=== PATIENT | male | born 1945 | race Caucasian/White ===

== ENCOUNTER 2016-06-26 08:00 | Outpatient (CLI) | payer MEDICARE | END 2016-06-26 08:01 | disposition home or self-care (01) | DX: I48.91 Unspecified atrial fibrillation (principal); Z79.01 Long term (current) use of anticoagulants ==

== ENCOUNTER 2016-07-10 08:00 | Outpatient (CLI) | payer MEDICARE | END 2016-07-10 08:01 | disposition home or self-care (01) | DX: I48.91 Unspecified atrial fibrillation (principal); Z79.01 Long term (current) use of anticoagulants ==

== ENCOUNTER 2016-09-18 08:00 | Outpatient (CLI) | payer MEDICARE | END 2016-09-18 08:01 | disposition home or self-care (01) | DX: I48.91 Unspecified atrial fibrillation (principal); Z79.01 Long term (current) use of anticoagulants ==

== ENCOUNTER 2016-10-12 09:35 | Day surgery (SDC) | payer MEDICARE ==
[2016-10-12] MEDS ORDERED: LACTATED RINGERS 1,000 ML IV ONE (10:03)
[2016-10-12] MEDS ORDERED: fentaNYL 100 MCG/2 ML VIAL IVP ONE (11:25)
[2016-10-12] MEDS ORDERED: MIDAZOLAM 2 MG/2 ML VIAL IVP ONE (11:25)
== END 2016-10-12 09:36 | disposition home or self-care (01) ==
PROC: 0DBN8ZX Excision of Sigmoid Colon, Via Natural or Artificial Opening Endoscopic, Diagnostic (ICD-10-PCS; 2016-10-12)
PROC: 0DBP8ZX Excision of Rectum, Via Natural or Artificial Opening Endoscopic, Diagnostic (ICD-10-PCS; 2016-10-12)
PROC: 0DBK8ZX Excision of Ascending Colon, Via Natural or Artificial Opening Endoscopic, Diagnostic (ICD-10-PCS; principal; 2016-10-12 10:45)
DX: Z12.11 Encounter for screening for malignant neoplasm of colon (principal); K62.1 Rectal polyp; D12.2 Benign neoplasm of ascending colon; D12.5 Benign neoplasm of sigmoid colon; K57.30 Diverticulosis of large intestine without perforation or abscess without bleeding; K64.4 Residual hemorrhoidal skin tags; K64.8 Other hemorrhoids; E78.00 Pure hypercholesterolemia, unspecified; I10 Essential (primary) hypertension; I25.2 Old myocardial infarction; Z79.01 Long term (current) use of anticoagulants; Z82.49 Family history of ischemic heart disease and other diseases of the circulatory system; Z80.0 Family history of malignant neoplasm of digestive organs; Z83.3 Family history of diabetes mellitus; Z87.891 Personal history of nicotine dependence; Z88.2 Allergy status to sulfonamides
CPT/HCPCS: 45380; 45385; J7120

== ENCOUNTER 2016-10-24 08:00 | Outpatient (CLI) | payer MEDICARE | END 2016-10-24 08:01 | disposition home or self-care (01) | DX: I48.91 Unspecified atrial fibrillation (principal); Z79.01 Long term (current) use of anticoagulants ==

== ENCOUNTER 2016-10-31 14:05 | Outpatient (CLI) | payer MEDICARE | END 2016-10-31 14:06 | disposition home or self-care (01) | DX: I48.91 Unspecified atrial fibrillation (principal); Z79.01 Long term (current) use of anticoagulants ==

== ENCOUNTER 2016-12-06 11:01 | Outpatient (CLI) | payer MEDICARE | END 2016-12-06 11:02 | LOC: LAB.N 11:01 | PROVIDERS: ATTEND Internal Medicine | DX: I48.91 Unspecified atrial fibrillation (principal); Z79.01 Long term (current) use of anticoagulants | CPT/HCPCS: 85610 ==

== ENCOUNTER 2017-01-08 08:44 | Outpatient (CLI) | payer MEDICARE | END 2017-01-08 08:45 | disposition home or self-care (01) | LOC: LAB.N 08:44 | PROVIDERS: ATTEND Internal Medicine | DX: I48.91 Unspecified atrial fibrillation (principal); Z79.01 Long term (current) use of anticoagulants | CPT/HCPCS: 85610 ==

== ENCOUNTER 2017-02-08 13:40 | Outpatient (CLI) | payer MEDICARE | END 2017-02-08 13:41 | disposition home or self-care (01) | LOC: LAB.N 13:40 | PROVIDERS: ATTEND Internal Medicine | DX: I48.91 Unspecified atrial fibrillation (principal); Z79.01 Long term (current) use of anticoagulants | CPT/HCPCS: 85610 ==

== ENCOUNTER 2017-03-12 10:30 | Outpatient (CLI) | payer MEDICARE | END 2017-03-12 10:31 | disposition home or self-care (01) | LOC: LAB.N 10:30 | PROVIDERS: ATTEND Internal Medicine | DX: I48.91 Unspecified atrial fibrillation (principal); Z79.01 Long term (current) use of anticoagulants | CPT/HCPCS: 85610 ==

== ENCOUNTER 2017-04-10 15:27 | Outpatient (CLI) | payer MEDICARE | END 2017-04-10 15:28 | disposition home or self-care (01) | LOC: LAB.N 15:27 | PROVIDERS: ATTEND Internal Medicine | DX: I48.91 Unspecified atrial fibrillation (principal); Z79.01 Long term (current) use of anticoagulants | CPT/HCPCS: 85610 ==

== ENCOUNTER 2017-05-17 13:44 | Outpatient (CLI) | payer MEDICARE | END 2017-05-17 13:45 | disposition home or self-care (01) | LOC: LAB.N 13:44 | PROVIDERS: ATTEND Internal Medicine | DX: I48.91 Unspecified atrial fibrillation (principal); Z79.01 Long term (current) use of anticoagulants | CPT/HCPCS: 85610 ==

== ENCOUNTER 2017-06-05 08:00 | Outpatient (CLI) | payer MEDICARE ==
[2017-06-05 18:51] LABS: BASOPHILS % (AUTO) 0.5 %; EOSINOPHILS # (AUTO) 0.2 10^3/uL (0.0-0.7); HCT - HEMATOCRIT 48.4 % (42.0-52.0); LYMPHOCYTES # (AUTO) 1.4 10^3/uL (1.5-3.5); LYMPHOCYTES % (AUTO) 18.9 %; MEAN CORPUSCULAR HEMOGLOBIN 34.3 pg (27.0-31.0); MEAN CORPUSCULAR VOLUME 103.8 fL (80.0-94.0); MEAN PLATELET VOLUME 8.9 fL (7.4-11.4); MONOCYTES # (AUTO) 0.8 10^3/uL (0.0-1.0); MONOCYTES % (AUTO) 11.3 %; NEUTROPHILS % (AUTO) 66.3 %; RED BLOOD COUNT 4.66 10^6/uL (4.70-6.10); RED CELL DISTRIBUTION WIDTH 13.3 % (12.0-15.0); UNCORRECTED WHITE BLOOD COUNT 7.5 x10^3/uL; WHITE BLOOD COUNT 7.5 x10^3/uL (4.8-10.8)
[2017-06-05 19:04] LABS: ALBUMIN/GLOBULIN RATIO 1.6 (1.0-2.2); BILIRUBIN,TOTAL 1.6 mg/dL (0.2-1.0); BUN - BLOOD UREA NITROGEN 13 mg/dL (6-20); CALCIUM 9.3 mg/dL (8.5-10.3); CARBON DIOXIDE - CO2 25 mmol/L (21-32); CHLORIDE 96 mmol/L (101-111); CHOLESTEROL 172 mg/dL; CREATININE 1.1 mg/dL (0.6-1.2); GFR - MDRD 66 (>89); GLUCOSE 129 mg/dL (70-100); HDL CHOLESTEROL 58 mg/dL; LDL/HDL RATIO 1.7 (<3.6); POTASSIUM 4.2 mmol/L (3.5-5.0); SODIUM 132 mmol/L (135-145); TRIGLYCERIDES 82 mg/dL; VLDL CHOLESTEROL 16 mg/dL
[2017-06-05 19:13] LABS: HEMOGLOBIN A1C 0.63 g/dL
[2017-06-05 19:57] LABS: INR 2.3 (0.8-1.2); PT - PROTHROMBIN TIME 25.4 secs (9.9-12.6)
== END 2017-06-05 08:01 | disposition home or self-care (01) ==
LOC: LAB.N 08:00
PROVIDERS: ATTEND Internal Medicine
DX: I73.9 Peripheral vascular disease, unspecified (principal); E78.5 Hyperlipidemia, unspecified; K73.9 Chronic hepatitis, unspecified; I10 Essential (primary) hypertension; I48.91 Unspecified atrial fibrillation; Z12.5 Encounter for screening for malignant neoplasm of prostate
CPT/HCPCS: 36415; 80053; 80061; 83036; 85025; 85610; G0103; 84153

== ENCOUNTER 2017-07-09 09:46 | Outpatient (CLI) | payer MEDICARE | END 2017-07-09 09:47 | disposition home or self-care (01) | LOC: LAB.N 09:46 | PROVIDERS: ATTEND Internal Medicine | DX: I48.91 Unspecified atrial fibrillation (principal); Z79.01 Long term (current) use of anticoagulants | CPT/HCPCS: 85610 ==

== ENCOUNTER 2017-08-23 08:00 | Outpatient (CLI) | payer MEDICARE | END 2017-08-23 08:01 | disposition home or self-care (01) | LOC: LAB.N 08:00 | PROVIDERS: ATTEND Internal Medicine | DX: I48.91 Unspecified atrial fibrillation (principal); Z79.01 Long term (current) use of anticoagulants | CPT/HCPCS: 85610 ==

== ENCOUNTER 2017-09-06 14:11 | Outpatient (CLI) | payer MEDICARE | END 2017-09-06 14:12 | disposition home or self-care (01) | LOC: LAB.N 14:11 | PROVIDERS: ATTEND Internal Medicine | DX: I48.91 Unspecified atrial fibrillation (principal); Z79.01 Long term (current) use of anticoagulants | CPT/HCPCS: 85610 ==

== ENCOUNTER 2017-10-11 13:34 | Outpatient (CLI) | payer MEDICARE | END 2017-10-11 13:35 | disposition home or self-care (01) | LOC: LAB.N 13:34 | PROVIDERS: ATTEND Internal Medicine | DX: I48.91 Unspecified atrial fibrillation (principal); Z79.01 Long term (current) use of anticoagulants | CPT/HCPCS: 85610 ==

== ENCOUNTER 2017-11-15 14:53 | Outpatient (CLI) | payer MEDICARE | END 2017-11-15 14:54 | LOC: LAB.N 14:53 | PROVIDERS: ATTEND Internal Medicine | DX: I48.91 Unspecified atrial fibrillation (principal); Z79.01 Long term (current) use of anticoagulants | CPT/HCPCS: 85610 ==

== ENCOUNTER 2017-11-20 14:42 | Outpatient (CLI) | payer MEDICARE ==
[2017-11-20 19:24] LABS: PSA FREE 0.394 ng/mL (0.16-2.81)
[2017-11-20 19:25] LABS: PSA TOTAL 2.051 ng/mL (0.000-2.000)
== END 2017-11-20 14:43 | disposition home or self-care (01) ==
LOC: LAB.N 14:42
PROVIDERS: ATTEND Internal Medicine
DX: N40.0 Benign prostatic hyperplasia without lower urinary tract symptoms (principal)
CPT/HCPCS: 36415; 84154

== ENCOUNTER 2017-12-20 13:46 | Outpatient (CLI) | payer MEDICARE | END 2017-12-20 13:47 | disposition home or self-care (01) | LOC: LAB.N 13:46 | PROVIDERS: ATTEND Internal Medicine | DX: I48.91 Unspecified atrial fibrillation (principal); Z79.01 Long term (current) use of anticoagulants | CPT/HCPCS: 85610 ==

== ENCOUNTER 2018-01-03 08:00 | Outpatient (CLI) | payer MEDICARE | END 2018-01-03 08:01 | disposition home or self-care (01) | LOC: LAB.N 08:00 | PROVIDERS: ATTEND Internal Medicine | DX: I48.91 Unspecified atrial fibrillation (principal); Z79.01 Long term (current) use of anticoagulants | CPT/HCPCS: 85610 ==

== ENCOUNTER 2018-02-06 14:47 | Outpatient (CLI) | payer MEDICARE | END 2018-02-06 14:48 | disposition home or self-care (01) | LOC: LAB.N 14:47 | PROVIDERS: ATTEND Internal Medicine | DX: I48.91 Unspecified atrial fibrillation (principal); Z79.01 Long term (current) use of anticoagulants | CPT/HCPCS: 85610 ==

== ENCOUNTER 2018-03-12 08:00 | Outpatient (CLI) | payer MEDICARE | END 2018-03-12 08:01 | disposition home or self-care (01) | LOC: LAB.N 08:00 | PROVIDERS: ATTEND Internal Medicine | DX: I48.91 Unspecified atrial fibrillation (principal); Z79.01 Long term (current) use of anticoagulants | CPT/HCPCS: 85610 ==

== ENCOUNTER 2018-03-21 15:00 | Outpatient (CLI) | payer MEDICARE | END 2018-03-21 15:01 | disposition home or self-care (01) | LOC: LAB.N 15:00 | PROVIDERS: ATTEND Internal Medicine | DX: I48.91 Unspecified atrial fibrillation (principal); Z79.01 Long term (current) use of anticoagulants | CPT/HCPCS: 85610 ==

== ENCOUNTER 2018-04-05 14:12 | Outpatient (CLI) | payer MEDICARE ==
[2018-04-05 18:47] LABS: PT - PROTHROMBIN TIME 59.6 secs (9.9-12.6)
[2018-04-05 19:05] LABS: INR 5.4 (0.8-1.2)
== END 2018-04-05 14:13 | disposition home or self-care (01) ==
LOC: LAB.N 14:12
PROVIDERS: ATTEND Internal Medicine
DX: I48.91 Unspecified atrial fibrillation (principal); Z79.01 Long term (current) use of anticoagulants
CPT/HCPCS: 36415; 85610

== ENCOUNTER 2018-04-18 14:43 | Outpatient (CLI) | payer MEDICARE | END 2018-04-18 14:44 | disposition home or self-care (01) | LOC: LAB.N 14:43 | PROVIDERS: ATTEND Internal Medicine | DX: I48.91 Unspecified atrial fibrillation (principal); Z79.01 Long term (current) use of anticoagulants | CPT/HCPCS: 85610 ==

== ENCOUNTER 2018-05-16 11:03 | Outpatient (CLI) | payer MEDICARE | END 2018-05-16 23:59 | disposition home or self-care (01) | LOC: LAB.N 11:03 | PROVIDERS: ATTEND Internal Medicine | DX: I48.91 Unspecified atrial fibrillation (principal); Z79.01 Long term (current) use of anticoagulants | CPT/HCPCS: 85610 ==

== ENCOUNTER 2018-06-24 08:00 | Outpatient (CLI) | payer MEDICARE | END 2018-06-24 23:59 | disposition home or self-care (01) | LOC: LAB.N 08:00 | PROVIDERS: ATTEND Internal Medicine | DX: I48.91 Unspecified atrial fibrillation (principal); Z79.01 Long term (current) use of anticoagulants | CPT/HCPCS: 80053; 80061; 83036; 83721; 84153; 84154; 84443; 85025; 85610 ==

== ENCOUNTER 2018-07-05 09:28 | Outpatient (CLI) | payer MEDICARE ==
[2018-07-05 12:31] LABS: BASOPHILS % (AUTO) 0.5 %; EOSINOPHILS # (AUTO) 0.2 10^3/uL (0.0-0.7); EOSINOPHILS % (AUTO) 2.7 %; HGB - HEMOGLOBIN 16.4 g/dL (14.0-18.0); LYMPHOCYTES # (AUTO) 1.4 10^3/uL (1.5-3.5); LYMPHOCYTES % (AUTO) 22.5 %; MEAN CORPUSCULAR HEMOGLOBIN 35.3 pg (27.0-31.0); MEAN CORPUSCULAR HGB CONC 34.8 g/dL (32.0-36.0); MEAN CORPUSCULAR VOLUME 101.5 fL (80.0-94.0); MEAN PLATELET VOLUME 8.8 fL (7.4-11.4); MONOCYTES # (AUTO) 0.8 10^3/uL (0.0-1.0); MONOCYTES % (AUTO) 13.7 %; NEUTROPHILS # (AUTO) 3.7 10^3/uL (1.5-6.6); NEUTROPHILS % (AUTO) 60.6 %; PLT - PLATELET COUNT 151 10^3/uL (130-450); RED BLOOD COUNT 4.64 10^6/uL (4.70-6.10); RED CELL DISTRIBUTION WIDTH 13.2 % (12.0-15.0); WHITE BLOOD COUNT 6.2 x10^3/uL (4.8-10.8)
[2018-07-05 12:53] LABS: ALBUMIN 4.3 g/dL (3.2-5.5); ALBUMIN/GLOBULIN RATIO 1.7 (1.0-2.2); ALKALINE PHOSPHATASE 47 IU/L (42-121); ALT ALANINE AMINOTRANSFERASE 20 IU/L (10-60); AST ASPARTATE AMINOTRANSFERASE 23 IU/L (10-42); BILIRUBIN,TOTAL 1.5 mg/dL (0.2-1.0); BUN - BLOOD UREA NITROGEN 14 mg/dL (6-20); CALCIUM 9.3 mg/dL (8.5-10.3); CARBON DIOXIDE - CO2 27 mmol/L (21-32); CHLORIDE 98 mmol/L (101-111); CHOL/HDL RATIO 2.4 (<5.0); CHOLESTEROL 137 mg/dL; CREATININE 1.1 mg/dL (0.6-1.2); GFR - MDRD 65 (>89); GLUCOSE 93 mg/dL (70-100); HDL CHOLESTEROL 57 mg/dL; LDL CHOLESTEROL,CALCULATED 69 mg/dL; LDL/HDL RATIO 1.2 (<3.6); PSA FREE 0.305 ng/mL (0.16-2.81); SODIUM 135 mmol/L (135-145); TOTAL PROTEIN 6.9 g/dL (6.7-8.2); VLDL CHOLESTEROL 11 mg/dL
[2018-07-05 12:54] LABS: PSA TOTAL 1.074 ng/mL (0.000-2.000)
[2018-07-05 13:10] LABS: HB2 TOTAL 17.7 g/dL; HEMOGLOBIN A1C 0.66 g/dL; HEMOGLOBIN A1C % 5.6 % (4.6-6.2)
== END 2018-07-05 23:59 | disposition home or self-care (01) ==
LOC: LAB.N 09:28
PROVIDERS: ATTEND Internal Medicine
DX: I73.9 Peripheral vascular disease, unspecified (principal); N40.0 Benign prostatic hyperplasia without lower urinary tract symptoms; R73.9 Hyperglycemia, unspecified; E78.5 Hyperlipidemia, unspecified; I10 Essential (primary) hypertension; I48.91 Unspecified atrial fibrillation; Z79.01 Long term (current) use of anticoagulants
CPT/HCPCS: 80053; 80061; 83036; 83721; 84153; 84154; 84443; 85025; 85610

== ENCOUNTER 2018-10-07 08:00 | Outpatient (CLI) | payer MEDICARE | END 2018-10-07 23:59 | disposition home or self-care (01) | LOC: LAB.N 08:00 | PROVIDERS: ATTEND Internal Medicine | DX: I48.91 Unspecified atrial fibrillation (principal); Z79.01 Long term (current) use of anticoagulants | CPT/HCPCS: 85610 ==

== ENCOUNTER 2018-11-28 08:00 | Outpatient (CLI) | payer MEDICARE | END 2018-11-28 23:59 | disposition home or self-care (01) | LOC: LAB.N 08:00 | PROVIDERS: ATTEND Internal Medicine | DX: I48.91 Unspecified atrial fibrillation (principal); Z79.01 Long term (current) use of anticoagulants | CPT/HCPCS: 85610 ==

== ENCOUNTER 2019-01-02 11:11 | Outpatient (CLI) | payer MEDICARE | END 2019-01-02 23:59 | disposition home or self-care (01) | LOC: LAB.N 11:11 | PROVIDERS: ATTEND Internal Medicine | DX: I48.91 Unspecified atrial fibrillation (principal); Z79.01 Long term (current) use of anticoagulants | CPT/HCPCS: 85610 ==

== ENCOUNTER 2019-02-05 08:00 | Outpatient (CLI) | payer MEDICARE | END 2019-02-05 23:59 | disposition home or self-care (01) | LOC: LAB.N 08:00 | PROVIDERS: ATTEND Internal Medicine | DX: Z79.01 Long term (current) use of anticoagulants (principal); I48.91 Unspecified atrial fibrillation | CPT/HCPCS: 85610 ==

== ENCOUNTER 2019-03-11 08:00 | Outpatient (CLI) | payer MEDICARE | END 2019-03-11 23:59 | disposition home or self-care (01) | LOC: LAB.N 08:00 | PROVIDERS: ATTEND Internal Medicine | DX: Z79.01 Long term (current) use of anticoagulants (principal); I48.91 Unspecified atrial fibrillation | CPT/HCPCS: 85610 ==

== ENCOUNTER 2019-03-27 08:00 | Outpatient (CLI) | payer MEDICARE | END 2019-03-27 23:59 | disposition home or self-care (01) | LOC: LAB.N 08:00 | PROVIDERS: ATTEND Family Medicine | DX: Z79.01 Long term (current) use of anticoagulants (principal); I48.91 Unspecified atrial fibrillation | CPT/HCPCS: 85610 ==

== ENCOUNTER 2019-04-14 08:00 | Outpatient (CLI) | payer MEDICARE | END 2019-04-14 23:59 | LOC: LAB.N 08:00 | PROVIDERS: ATTEND Family Medicine | DX: Z79.01 Long term (current) use of anticoagulants (principal); I48.91 Unspecified atrial fibrillation | CPT/HCPCS: 85610 ==

== ENCOUNTER 2019-04-29 08:00 | Outpatient (CLI) | payer MEDICARE | END 2019-04-29 23:59 | disposition home or self-care (01) | LOC: LAB.N 08:00 | PROVIDERS: ATTEND Family Medicine | DX: Z79.01 Long term (current) use of anticoagulants (principal); I48.91 Unspecified atrial fibrillation | CPT/HCPCS: 85610 ==

== ENCOUNTER 2019-05-06 08:00 | Outpatient (CLI) | payer MEDICARE | END 2019-05-06 23:59 | disposition home or self-care (01) | LOC: LAB.N 08:00 | PROVIDERS: ATTEND Family Medicine | DX: Z79.01 Long term (current) use of anticoagulants (principal); I48.91 Unspecified atrial fibrillation | CPT/HCPCS: 85610 ==

== ENCOUNTER 2019-05-13 08:00 | Outpatient (CLI) | payer MEDICARE | END 2019-05-13 23:59 | LOC: LAB.N 08:00 | PROVIDERS: ATTEND Family Medicine | DX: Z79.01 Long term (current) use of anticoagulants (principal); I48.91 Unspecified atrial fibrillation | CPT/HCPCS: 85610 ==

== ENCOUNTER 2019-06-27 08:00 | Outpatient (CLI) | payer MEDICARE | END 2019-06-27 23:59 | disposition home or self-care (01) | LOC: LAB.N 08:00 | PROVIDERS: ATTEND Family Medicine | DX: Z79.01 Long term (current) use of anticoagulants (principal); I48.91 Unspecified atrial fibrillation | CPT/HCPCS: 85610 ==

== ENCOUNTER 2019-07-23 08:00 | Outpatient (CLI) | payer MEDICARE | END 2019-07-23 23:59 | disposition home or self-care (01) | LOC: LAB.N 08:00 | PROVIDERS: ATTEND Family Medicine | DX: I48.91 Unspecified atrial fibrillation (principal); Z79.01 Long term (current) use of anticoagulants | CPT/HCPCS: 85610 ==

== ENCOUNTER 2019-08-25 14:23 | Outpatient (CLI) | payer MEDICARE | END 2019-08-25 23:59 | disposition home or self-care (01) | LOC: LAB.N 14:23 | PROVIDERS: ATTEND Family Medicine | DX: I48.91 Unspecified atrial fibrillation (principal); Z79.01 Long term (current) use of anticoagulants | CPT/HCPCS: 85610 ==

== ENCOUNTER 2019-08-26 09:52 | Outpatient (CLI) | payer MEDICARE ==
[2019-08-26 11:54] LABS: BASOPHILS % (AUTO) 0.4 %; EOSINOPHILS # (AUTO) 0.1 10^3/uL (0.0-0.7); EOSINOPHILS % (AUTO) 1.7 %; HGB - HEMOGLOBIN 16.7 g/dL (14.0-18.0); LYMPHOCYTES # (AUTO) 1.2 10^3/uL (1.5-3.5); LYMPHOCYTES % (AUTO) 17.5 %; MEAN CORPUSCULAR HEMOGLOBIN 33.7 pg (27.0-31.0); MEAN CORPUSCULAR HGB CONC 33.3 g/dL (32.0-36.0); MEAN CORPUSCULAR VOLUME 101.4 fL (80.0-94.0); MEAN PLATELET VOLUME 10.5 fL (7.4-11.4); MONOCYTES # (AUTO) 0.9 10^3/uL (0.0-1.0); MONOCYTES % (AUTO) 12.1 %; NEUTROPHILS # (AUTO) 4.8 10^3/uL (1.5-6.6); PLT - PLATELET COUNT 160 10^3/uL (130-450); RED BLOOD COUNT 4.95 10^6/uL (4.70-6.10); RED CELL DISTRIBUTION WIDTH 13.1 % (12.0-15.0)
[2019-08-26 12:17] LABS: ALBUMIN 4.6 g/dL (3.2-5.5); ALBUMIN/GLOBULIN RATIO 1.6 (1.0-2.2); ALKALINE PHOSPHATASE 60 IU/L (42-121); ALT ALANINE AMINOTRANSFERASE 18 IU/L (10-60); AST ASPARTATE AMINOTRANSFERASE 24 IU/L (10-42); BILIRUBIN,TOTAL 1.7 mg/dL (0.2-1.0); BUN - BLOOD UREA NITROGEN 16 mg/dL (6-20); CALCIUM 9.8 mg/dL (8.5-10.3); CARBON DIOXIDE - CO2 27 mmol/L (21-32); CHLORIDE 97 mmol/L (101-111); CHOL/HDL RATIO 2.5 (<5.0); CHOLESTEROL 155 mg/dL; GFR - MDRD 73 (>89); GLUCOSE 108 mg/dL (70-100); HDL CHOLESTEROL 62 mg/dL; LDL CHOLESTEROL,CALCULATED 78 mg/dL; LDL/HDL RATIO 1.3 (<3.6); SODIUM 133 mmol/L (135-145); TOTAL PROTEIN 7.5 g/dL (6.7-8.2); VLDL CHOLESTEROL 15 mg/dL
== END 2019-08-26 23:59 | disposition home or self-care (01) ==
LOC: LAB.N 09:52
PROVIDERS: ATTEND Family Medicine
DX: I73.9 Peripheral vascular disease, unspecified (principal); N40.1 Benign prostatic hyperplasia with lower urinary tract symptoms; N13.8 Other obstructive and reflux uropathy; R73.02 Impaired glucose tolerance (oral); E78.5 Hyperlipidemia, unspecified; I10 Essential (primary) hypertension; I48.91 Unspecified atrial fibrillation; Z12.5 Encounter for screening for malignant neoplasm of prostate
CPT/HCPCS: 36415; 80053; 80061; 84443; 85025; G0103; 83721; 84153

== ENCOUNTER 2019-09-04 12:24 | Outpatient (CLI) | payer MEDICARE ==
--- NOTE | 2019-09-04 16:47 | CT Report ---
Reason: DECREASED MOBILITY, SENSATION Procedure Date: 09/04/2019 Accession Number: [id number] / [id number] Procedure: CT - LUMBAR SPINE WO CPT Code: Final Report FULL RESULT: EXAM: CT LUMBAR SPINE WITHOUT CONTRAST EXAM DATE: 09/04/2019 12:40 PM. CLINICAL HISTORY: 74-year-old man with bilateral leg numbness and low back pain for 3 months. COMPARISONS: None. TECHNIQUE: Thin-section axial images were acquired of the lumbar spine from T12 to S1 without contrast. Post-processing: Coronal and sagittal reformats. Other: None. In accordance with CT protocol optimization, one or more of the following dose reduction techniques were utilized for this exam: automated exposure control, adjustment of mA and/or KV based on patient size, or use of iterative reconstructive technique. FINDINGS: Alignment: Mild grade 1 anterolisthesis of L4 on L5 measures 2-3 mm. There is mild convex left scoliosis of the lumbar spine centered at L2-L3. Bones: Five [id number] lumbar vertebral bodies are present. No fractures or bone lesions. Disk Levels/Facets: T12-L1: Unremarkable. L1-L2: There is mild disk height loss. Facet hypertrophy results in minimal narrowing of the bony central canal and neural foramina. L2-L3: There is mild to moderate disk height loss. Facet hypertrophy and small broad-based disk bulge result in moderate narrowing of the bony central canal. Facet hypertrophy results in mild narrowing of the neural foramina bilaterally. L3-L4: There is moderate disk height loss. Facet hypertrophy and small broad-based disk bulge combined with prominent dorsal epidural fat result in moderate narrowing of the bony central canal. Facet hypertrophy and disk in the subarticular spaces result in mild to moderate narrowing of the neural foramina bilaterally. L4-L5: There is moderate disk height loss with vacuum disk phenomenon. Facet hypertrophy and broad-based disk bulge result in moderate to severe narrowing of the bony central canal. Facet hypertrophy effaces the lateral recesses bilaterally, possibly compressing the passing L5 nerve roots. Disk osteophyte complex in the subarticular spaces and facet hypertrophy result in mild to moderate narrowing of the right neural foramen and mild narrowing on the left. L5-S1: There is mild disk height loss. No significant narrowing of the central canal, but small disk bulge may contact the passing right S1 nerve roots. Disk in the subarticular spaces results in mild to moderate narrowing of the left neural foramen and mild narrowing on the right. Musculature: Normal. No fatty atrophy. Other: Endovascular stent is present in the left renal artery ostium. Otherwise, scattered calcified atherosclerotic plaque is seen in the major arteries. IMPRESSION: 1. Degenerative changes result in the following: - L2-L3: Moderate narrowing of the bony central canal. Mild narrowing of the neural foramina bilaterally. - L3-L4: Moderate narrowing of the bony central canal. Mild to moderate narrowing of the neural foramina bilaterally. - L4-L5: Moderate to severe narrowing of the bony central canal with effacement of the lateral recesses bilaterally. The passing L5 nerve roots may be compressed. Mild to moderate narrowing of the right neural foramen and mild narrowing on the left. - L5-S1: No significant narrowing of the central canal, but disk bulge may contact the passing right S1 nerve root. Mild to moderate narrowing of the left neural foramen and mild narrowing on the right. RADIA
--- NOTE | 2019-09-05 07:02 | XRAY Report ---
Reason: DECREASED SENSATION, MOBILITY, SHOULDER PAIN Procedure Date: 09/04/2019 Accession Number: [id number] / [id number] Procedure: XR - Shoulder 3 View RT CPT Code: Final Report FULL RESULT: EXAM: RIGHT SHOULDER RADIOGRAPHY EXAM DATE: 09/04/2019 12:57 PM. CLINICAL HISTORY: DECREASED SENSATION, MOBILITY, SHOULDER PAIN. COMPARISON: None. TECHNIQUE: 3 views. FINDINGS: Bones: No acute displaced fractures or suspicious bony lesion. Joints: No dislocation. Mild degenerative change. Decreased acromiohumeral clearance. Soft Tissues: No significant soft tissue swelling. IMPRESSION: No acute osseous abnormality demonstrated. Decreased acromiohumeral clearance could predispose the patient to impingement. RADIA
== END 2019-09-04 12:25 | disposition home or self-care (01) ==
LOC: DI 12:24
PROVIDERS: ATTEND Family Medicine
DX: M51.36 Other intervertebral disc degeneration, lumbar region (principal); M47.816 Spondylosis without myelopathy or radiculopathy, lumbar region; M51.37 Other intervertebral disc degeneration, lumbosacral region; M48.061 Spinal stenosis, lumbar region without neurogenic claudication; M19.011 Primary osteoarthritis, right shoulder
CPT/HCPCS: 72131

== ENCOUNTER 2019-10-08 08:00 | Outpatient (CLI) | payer MEDICARE | END 2019-10-08 23:59 | disposition home or self-care (01) | LOC: LAB.WCP 08:00 | PROVIDERS: ATTEND Family Medicine | DX: Z53.9 Procedure and treatment not carried out, unspecified reason (principal) ==

== ENCOUNTER 2019-12-17 08:00 | Outpatient (CLI) | payer MEDICARE | END 2019-12-17 23:59 | disposition home or self-care (01) | LOC: LAB.WCP 08:00 | PROVIDERS: ATTEND Family Medicine | DX: I48.91 Unspecified atrial fibrillation (principal); Z79.01 Long term (current) use of anticoagulants ==

== ENCOUNTER 2020-03-18 08:00 | Outpatient (CLI) | payer MEDICARE | END 2020-03-18 23:59 | disposition home or self-care (01) | LOC: LAB.WCP 08:00 | PROVIDERS: ATTEND Family Medicine | DX: Z79.01 Long term (current) use of anticoagulants (principal) ==

== ENCOUNTER 2020-04-30 09:57 | Outpatient (CLI) | payer MEDICARE ==
[2020-04-30 12:01] LABS: CALCIUM 9.5 mg/dL (8.5-10.3)
[2020-04-30 12:39] LABS: INR 2.5 (0.8-1.2)
[2020-05-01 07:31] LABS: HEMOGLOBIN A1c% 5.4 % (4.27-6.07)
== END 2020-04-30 23:59 | disposition home or self-care (01) ==
LOC: LAB.WCP 09:57
PROVIDERS: ATTEND Internal Medicine
DX: I50.30 Unspecified diastolic (congestive) heart failure (principal); R73.02 Impaired glucose tolerance (oral); I48.91 Unspecified atrial fibrillation
CPT/HCPCS: 36415; 80048; 83036; 83880; 84443; 85610

== ENCOUNTER 2020-05-28 08:00 | Outpatient (CLI) | payer MEDICARE ==
[2020-05-28 18:26] LABS: CREATININE 1.3 mg/dL (0.6-1.2)
== END 2020-05-28 23:59 | disposition home or self-care (01) ==
LOC: LAB.WCP 08:00
PROVIDERS: ATTEND Internal Medicine
DX: E87.6 Hypokalemia (principal)
CPT/HCPCS: 36415; 80048

== ENCOUNTER 2020-05-31 | Outpatient (CLI) | payer MEDICARE ==
--- OUTSIDE RECORDS SUMMARY | 2020-06-30 01:43 | EXTERNAL MEDICAL SUMMARY RPT | Continuity of Care Document ---
:1945 Demographics Phone Unavailable Preferred Language Nepali Marital Status Unknown Jain Affiliation Unknown Race Unknown Ethnic Group Unknown Author Organization [place] Address [address] [phone] Phone Care Team Providers Name Role Phone MD Unavailable Unavailable Demmler Unavailable Unavailable Crum Unavailable Unavailable Miscellaneous Unavailable Unavailable Problems date description facility Patient Education [facility] Ex-smoker (finding) [facility] 2019-08-26 09:52 HYPERLIPIDEMIA, UNSPECIFIED [facility] 2019-08-26 09:52 ESSENTIAL (PRIMARY) HYPERTENSION [facility] 2019-08-26 09:52 UNSPECIFIED ATRIAL FIBRILLATION [facility] 2019-08-26 09:52 PERIPHERAL VASCULAR DISEASE, [facility] UNSPECIFIED 2019-08-26 09:52 OTHER OBSTRUCTIVE AND REFLUX [facility] UROPATHY 2019-08-26 09:52 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 DEGENERATION, LUMBAR REGION 2019-09-04 12:[address] [facility] DEGENERATION, LUMBOSACRAL REGION 2020-03-18 08:00 SOFTWARE ARCHITECT (CURRENT) USE OF [facility] ANTICOAGULANTS 2020-04-21 14:56 Other forms of dyspnea [facility] 2020-04-23 00:00:00 Hypopotassemia [facility] 2020-04-23 00:00:00 Unspecified diastolic heart [facility] 2020-04-23 00:00:00 [facility] 2020-04-23 00:00:00 Unspecified diastolic [facility] (congestive) heart failure [facility] 2020-04-23 00:00:00 [facility] 2020-04-30 00:00 IMPAIRED GLUCOSE TOLERANCE [facility] (ORAL) 2020-04-30 00:00:00 [facility] 2020-04-30 00:00:00 Benign neoplasm of colon [facility] Primary Care [facility] 2020-04-30 00:00:00 Encounters for other specified [facility] administrative purpose [facility] 2020-04-30 00:00:00 Basic Metabolic [facility]BMP) [facility] 2020-04-30 00:00:00 [facility]C [facility] 2020-04-30 00:00:00 B-SINGLE [facility] 2020-04-30 00:00:00 [facility] 2020-04-30 00:00:00 Benign neoplasm of colon, [facility] Primary Care unspecified [facility] 2020-04-30 00:00:00 Essential (primary) [facility] 2020-04-30 00:00:00 Atherosclerosis of renal artery [facility] 2020-04-30 00:00:00 Other [facility] 2020-04-30 00:00:00 [facility] 2020-04-30 00:00:00 Health-related behavior [facility] 2020-04-30 00:00:00 Tobacco use and exposure [facility] 2020-04-30 00:00:00 Exercise [facility] Prim leo Care [facility] 2020-04-30 00:00:00 Renal artery stenosis [facility] rimary [facility] 2020-04-30 00:00:00 Details of drug misuse behavior [facility] Primary Care [facility] 2020-04-30 00:00:00 Adenomatous polyp of colon [facility] Primary Care [facility] 2020-04-30 00:00:[address] [facility] Primary Care [facility] 2020-04-30 00:00:00 Procedure carried out on subject id [facility] Primary Care [facility] 2020-04-30 00:00:00 How many standard drinks [facility] containing alcohol do you have on [facility] a typical day? 2020-04-30 00:00:00 How often do you have [address] [facility] drinks on 1 occasion? [facility] 2020-04-30 00:00:00 Alcohol use [facility] 2020-04-30 00:00:00 Tobacco smoking status NHIS [facility] Primary Care [facility] 2020-04-30 00:00:00 Total score? [facility] 2020-04-30 00:00:00 Former smoker [facility] 2020-04-30 09:57 UNSPECIFIED ATRIAL FIBRILLATION [facility] 2020-04-30 09:57 UNSPECIFIED DIASTOLIC [facility] (CONGESTIVE) HEART FAILURE 2020-04-30 09:57 IMPAIRED GLUCOSE TOLERANCE [facility] (ORAL) 2020-05-03 00:00:00 [facility]ia [facility] 2020-05-03 00:00:00 Basic Metabolic Panel (BMP) [facility] 2020-05-03 00:00:00 Hypokalemia [facility] 2020-05-28 00:00 HYPOKALEMIA [facility] 2020-05-28 00:00:00 [facility] 2020-05-28 00:00:00 [facility] 2020-05-28 00:00:00 Tobacco use and exposure [facility] [place] [facility] 2020-05-28 00:00:00 [facility] 2020-05-28 00:00:00 Details of drug misuse behavior idb [facility] Primary Care [facility] 2020-05-28 00:00:00 How many standard drinks [facility] containing alcohol do you have on [facility] a typical day? 2020-05-28 00:00:00 How often do you have 6 or more [facility] drinks on 1 occasion? [facility] 2020-05-28 00:00:00 [facility] 2020-05-28 00:00:00 Tobacco smoking status NHIS [facility] Primary Care [facility] 2020-05-28 00:00:00 Total score? [facility] 2020-05-28 00:00:00 Former smoker [facility] 2020-05-28 08:00 HYPOKALEMIA [facility] [place] 2020-05-31 08:00 SOFTWARE ARCHITECT (CURRENT) USE OF [facility] ANTICOAGULANTS 2020-06-07 00:00:00 Basic Metabolic Panel (BMP) [facility] Primary Care [facility] 2020-06-16 10:10 Encounter for screening for [facility] other viral diseases 2020-06-17 09:55 Chronic diastolic (congestive) [facility] heart failure 2020-06-17 09:55 Dyspnea, unspecified [facility] Allergies date description facility Sulfa (Sulfonamide Antibiotics) [facility] NO KNOWN ALLERGIES [facility] KRILL OIL [facility] LAMOTRIGINE [facility] No Known Drug [facility]ergies [facility] LATEX [facility] PENICILLINS [facility] NO KNOWN ALLERGIES [facility] NIACIN [facility] ASPIRIN [facility] IBUPROFEN [facility] OXYCODONE-ACETAMINOPHEN [facility] No Known Drug Allergies [facility] Medications date description facility 2020-04-20 00:00:00 Doxazosin 1 MG Oral Tablet [facility] 2020-04-20 00:00:00 Lovastatin 20 MG Oral Tablet [facility] 2020-04-20 00:00:00 Hydrochlorothiazide 25 MG Oral [facility] Tablet 2020-04-20 00:00:00 Lisinopril 5 MG Oral Tablet [facility] 2020-04-20 00:00:00 24 HR Diltiazem Hydrochloride [facility] MG Extended Release Capsule 2020-04-20 00:00:00 Warfarin Sodium 5 MG Oral Tablet [facility] 2020-04-20 00:00:00 24 HR metoprolol succinate 50 MG [facility] Extended Release Tablet 2020-04-20 00:00:00 Doxazosin 1 MG Oral Tablet [facility] 2020-04-20 00:00:00 Lovastatin 20 MG Oral Tablet [facility] 2020-04-20 00:00:00 Hydrochlorothiazide 25 MG [facility] Tablet 2020-04-20 00:00:00 Lisinopril 5 MG Oral Tablet [facility] 2020-04-20 00:00:00 24 HR Diltiazem Hydrochloride [facility] MG Extended Release Capsule 2020-04-20 00:00:00 Warfarin Sodium 5 MG Oral Tablet [facility] 2020-04-20 00:00:00 24 HR metoprolol succinate 50 MG [facility] Extended Release Tablet 2020-04-22 00:00:00 [facility] 2020-04-22 00:00:00 Lisinopril 40 MG Oral Tablet [facility] 2020-04-22 00:00:00 Aspirin 81 MG Enteric Coated [facility] Tablet 2020-04-22 00:00:00 Furosemide 40 MG Oral Tablet [facility] 2020-04-22 00:00:00 24 HR metoprolol succinate 50 MG [facility] Extended Release Tablet 2020-04-22 00:00:00 [facility] 2020-04-22 00:00:00 Lisinopril 40 MG Oral Tablet [facility] 2020-04-22 00:00:00 Aspirin 81 MG Enteric Coated [facility] Tablet 2020-04-22 00:00:00 Furosemide 40 MG Oral Tablet [facility] 2020-04-22 00:00:00 24 HR metoprolol succinate 50 MG [facility] Extended Release Tablet 2020-04-22 00:00:00 null [facility] [place] [facility] 2020-04-22 00:00:00 null [facility] [place] [facility] 2020-04-22 00:00:00 POTASSIUM CHLORIDE NAMITA CR [facility] [place] [facility] 2020-04-22 00:00:00 POTASSIUM [facility]LORIDE [facility] [place] [facility] 2020-04-30 00:00:00 null [facility] [place] [facility] 2020-04-30 00:00:00 null [facility] [place] [facility] 2020-04-30 00:00:00 null [facility] [place] [facility] 2020-04-30 00:00:00 null [facility] [place] [facility] 2020-04-30 00:00:00 null [facility] [place] [facility] 2020-04-30 00:00:00 null [facility] [place] [facility] 2020-04-30 00:00:00 METOPROLOL SUCCINATE [facility] [place] [facility] 2020-04-30 00:00:00 [facility]IRIN [facility] [place] [facility] 2020-04-30 00:00:00 DILTIAZEM HCL ER BEADS [facility] [place] [facility] 2020-04-30 00:00:00 null [facility] [place] [facility] 2020-04-30 00:00:00 [facility] [place] [facility] 2020-04-30 00:00:00 ASPIRIN [facility] [place] [facility] 2020-04-30 00:00:00 DILTIAZEM HCL ER BEADS [facility] [place] [facility] 2020-04-30 00:00:00 METOPROLOL [facility]INATE [facility] [place] [facility] 2020-05-28 00:00:00 null [facility] [place] [facility] 2020-05-28 00:00:00 null [facility] [place] [facility] 2020-05-28 00:00:00 null [facility] [place] [facility] 2020-05-28 00:00:00 null [facility] [place] [facility] 2020-05-28 00:00:00 POTASSIUM CHLORIDE NAMITA CR [facility] [place] [facility] 2020-05-28 00:00:00 DILTIAZEM HCL COATED BEADS [facility] [place] [facility] 2020-05-28 00:00:00 POTASSIUM CHLORIDE NAMITA CR [facility] [place] [facility] 2020-05-28 00:00:00 DILTIAZEM HCL COATED BEADS [facility] [place] [facility] Procedures date description facility 2020-04-20 00:00:00 [facility] date description facility 2020-04-20 00:00:00 [facility] date description facility 2020-04-20 00:00:00 [facility] date description facility 2020-04-20 00:00:00 [facility] date description facility 2020-04-20 00:00:00 [facility] date description facility 2020-04-20 00:00:00 [facility] date description facility 2020-04-20 00:00:00 [facility] date description facility 2020-04-20 00:00:00 [facility] date description facility 2020-04-21 00:00:00 [facility] date description facility 2020-04-21 00:00:00 [facility] date description facility 2020-04-21 00:00:00 [facility] date description facility 2020-04-21 00:00:00 [facility] date description facility 2020-04-21 00:00:00 [facility] date description facility 2020-04-21 00:00:00 [facility] date description facility 2020-04-21 00:00:00 [facility] date description facility 2020-04-30 00:00:00 TSH WITH REFLEX TO FT4 [facility] [place] [facility] date description facility 2020-04-30 00:00:00 Basic Metabolic Panel (BMP) [facility] [place] [facility] date description facility 2020-04-30 00:00:00 HGBA1C [facility] [place] [facility] date description facility 2020-04-30 00:00:00 B-SINGLE END SEWER [facility] [place] [facility] date description facility 2020-04-30 00:00:00 INR [facility] [place] [facility] date description facility 2020-04-30 00:00:00 [facility] [place] [facility] date description facility 2020-05-03 00:00:00 Basic Metabolic Panel (BMP) [facility] [place] [facility] date description facility 2020-05-03 00:00:00 [facility] [place] [facility] date description facility 2020-05-04 00:00:00 ANTICOAG MGMT PT WARFARIN [facility] [place] [facility] date description facility 2020-05-04 00:00:00 [facility] [place] [facility] date description facility 2020-05-31 00:00:00 POC PROTHROMBIN TIME [facility] [place] [facility] date description facility 2020-05-31 00:00:00 ANTICOAG MGMT PT WARFARIN [facility] [place] [facility] date description facility 2020-05-31 00:00:00 [facility] [place] [facility] date description facility 2020-06-16 00:00:00 [facility] date description facility 2020-06-28 00:00:00 POC PROTHROMBIN TIME [facility] [place] [facility] date description facility 2020-06-28 00:00:00 ANTICOAG MGMT PT WARFARIN [facility] [place] [facility] date description facility 2020-06-28 00:00:00 [facility] [place] [facility] Results Social History date description facility [id number] Ex-smoker ([facility] date description facility 2020-04-30 00:00:00 Former smoker [facility] [place] [facility] date description facility 2020-05-28 00:00:00 Former smoker [facility] [place] [facility] Social History date description facility [id number] Ex-smoker ([facility] date description facility 2020-04-30 00:00:00 Former smoker [facility] [place] [facility] date description facility 2020-05-28 00:00:00 Former smoker [facility] [place] [facility] date description facility [id number]
== END 2020-05-31 23:59 | disposition home or self-care (01) ==
DX: Z79.01 Long term (current) use of anticoagulants (principal)

== ENCOUNTER 2020-05-31 09:08 | Outpatient (CLI) | payer MEDICARE ==
--- NOTE | 2020-05-31 10:05 | SLEEP CARE CONSULTATION ---
Information from patient questionnaire entered by Julianna Peña. I have reviewed and concur with the information entered by Julianna Peña. This document represents the service I personally performed and the decisions made by me, Natalya Baker MD, [facility]. History of Present Illness Service Date and Time: 05/31/2020907 Reason for Visit: New patient Chief Complaint: reports: Other (concern for A-Fib and CHF) Date of Onset: greater than 30 years Usual bedtime: 9-10 pm Time it takes to fall asleep: 5-10 min Snores at night: Yes Observed to quit breathing while asleep: Yes Sleeps alone due to snoring: No Number of times waking at night: 4 Reasons for waking at night: reports: Bathroom Toss, Turn, or Twitch while sleeping: Yes Recalls having dreams: Yes Usually gets out of bed at: 7 am Feels refreshed in the morning: Yes Morning headache: No Sleepy or fatigued during the day: Yes Ever fallen asleep while driving: Yes Takes day naps: Yes Dreams during day naps: Yes Prior sleep studies: No Additional HPI information: I had the pleasure of seeing Mr. Lujan today regarding the possibility of him having a sleep disorder. As you know, he is a 74 year old gentleman who has atrial fibrillation and recently diagnosed with congestive heart failure. The patient tells me that he normally goes to bed around 9 - 10 pm, and it takes him approximately 5 - 10 minutes to fall asleep. He has been told that he snores loudly and irregularly at night. He has also been observed to stop breathing in his sleep. His can still sleep in the same bed. He can recall waking up on the average of 4 times during the night. Most of the time he wakes up because of having to use the bathroom. He has never awakened because of his own snoring, choking, or having to gasp for air. There is a lot of tossing and turning in his sleep. No somniloquy (sleep talking) or somnambulism (sleep walking). Generally he can recall having dreams. In the morning he usually gets up out of the bed around 7 a.m. feeling refreshed and rested. He usually does not have a morning headache. During the day he complains of feeling sleepy and fatigued. His score on Phoenix Sleepiness Scale is 7 out of 24. He has fallen asleep while driving and has gone out of the juan daniel. He usually takes naps during the day. Upon falling asleep during the day he reports having dreams. He has never had sleep paralysis, experienced cataplexy or symptoms of restless leg syndrome. He denies having impaired concentration during the day. - Parasomnia Symptoms Ever been unable to move upon waking from sleep: No Ever felt weak in the knees when startled or emotional: No Bothered by creepy, crawly, restless sensations in legs: No Problems with memory or concentration: No Subjective Initial Phoenix Sleepiness Scale score: 7 (in 2019) Past Medical History Past Medical History: reports: Hypertension, Congestive Heart Failure, Arrythmia, Other (A-Fib) Social History The patient's occupation is a Retired. Patient is and lives in [place]. Have you smoked in the past 12 months: No Cigarettes per day (20/pack): 18 Years of smokin Quit date: 1971 Smoking Pack Years: 3.6 Alcohol use: Yes Alcohol amount and frequency: 2 drinks per day Caffeine use: Yes Caffeine amount and frequency: 1 cup per day Family History Family history of sleep disordered breathing: No Allergies and Home Medications Drug allergies reviewed: Yes Home medication list reviewed: Yes Review of Systems Review of systems same as previous: Yes Weight loss over past 5 years: 20 Cardiovascular: reports: high blood pressure, irregular heart rate or pulse Respiratory: reports: shortness of breath Urinary: reports: frequency Ear/Nose/Throat: reports: tonsillectomy, wisdom teeth removed Musculoskeletal: reports: joint pain, back pain Physical Exam Vital signs obtained and entered by: To minimize the risk of COVID-19 exposure, detailed exam was not performed. Height: 6 ft 2 in Weight: 204 lb Body Mass Index: 26.2 BMI Classification: Overweight Impression and Plan IMPRESSION: 1. Obstructive Sleep Apnea-Hypopnea Syndrome, as suggested by history of loud and irregular snoring, observed cessation of breath while asleep, frequent awakenings during the night, and daytime hypersomnolence. Narrow oropharynx and obesity are common predisposing factors for obstructive sleep apnea-hypopnea syndrome. Pathophysiology of sleep-disordered breathing was discussed. The patient may also has central sleep apnea and Anthony-Meyer respiration with his underlying congestive heart failure. I recommend proceeding to polysomnography to confirm the diagnosis and to assess severity. I informed the patient of what the sleep studies involve and after some discussion, he agreed to proceed. Plan: 1. Schedule an in-laboratory polysomnography. 2. Avoid long distance driving or when feeling sleepy. 3. Avoid alcohol, sedative and muscle relaxant around bedtime. 4. Return in 1 to 2 weeks after the study to discuss results and initiate therapy. Visit Type: In Office Time Spent with Patient (minutes): 15 Provider Statement: I spent 100% of the Face to Face Visit with the patient with greater than 50% spent counseling the patient and coordination of care.
== END 2020-05-31 09:09 | disposition home or self-care (01) ==
LOC: SC 09:08
PROVIDERS: ATTEND Internal Medicine Pulmonary Disease
DX: G47.10 Hypersomnia, unspecified (principal); G47.8 Other sleep disorders; R06.81 Apnea, not elsewhere classified; R06.83 Snoring; I11.0 Hypertensive heart disease with heart failure; I50.9 Heart failure, unspecified; I48.91 Unspecified atrial fibrillation; E66.3 Overweight; Z68.26 Body mass index [BMI] 26.0-26.9, adult
CPT/HCPCS: 99203; G0463; 99212

== ENCOUNTER 2020-06-28 08:00 | Outpatient (CLI) | payer MEDICARE | END 2020-06-28 23:59 | disposition home or self-care (01) | LOC: LAB.WCP 08:00 | PROVIDERS: ATTEND Family Medicine | DX: I48.91 Unspecified atrial fibrillation (principal) ==

== ENCOUNTER 2020-08-03 20:24 | Outpatient (CLI) | payer MEDICARE | END 2020-08-03 20:25 | disposition home or self-care (01) | LOC: SC 20:24 | PROVIDERS: ATTEND Internal Medicine Pulmonary Disease | DX: I48.91 Unspecified atrial fibrillation (principal); G47.61 Periodic limb movement disorder; G47.10 Hypersomnia, unspecified | CPT/HCPCS: 95810 ==

== ENCOUNTER 2020-08-06 08:00 | Outpatient (CLI) | payer MEDICARE | END 2020-08-06 23:59 | disposition home or self-care (01) | LOC: LAB.WCP 08:00 | PROVIDERS: ATTEND Internal Medicine | DX: Z79.01 Long term (current) use of anticoagulants (principal); I48.91 Unspecified atrial fibrillation ==

== ENCOUNTER 2020-08-11 09:41 | Outpatient (CLI) | payer MEDICARE ==
--- NOTE | 2020-08-11 10:04 | SLEEP CARE CONSULTATION ---
Information from patient questionnaire entered by Julianna Peña. I have reviewed and concur with the information entered by Julianna Peña. This document represents the service I personally performed and the decisions made by , Charisse Verma ARNP. History of Present Illness Service Date and Time: 08/11/2020 0941 Initial [place] Sleepiness Scale score: 7 (in 2019) Current [place] Sleepiness Scale score: 9 Additional HPI information: DIANE HERRING returns for follow up and results of the recently performed polysomnography. The patient was informed of the following findings: no significant sleep disordered breathing with an average AHI of 1.4 and andrés oxygen saturation of 89%. He was noted to have atrial fibrillation and mild PLMs. I explained the pathophysiology behind obstructive sleep apnea. Patient does not have sleep apnea and was advised how weight gain could increase the risk of developing sleep apnea in the future. Patient has moderate to loud snoring. Snoring can be reduced by weight loss. Weight loss is best achieved with diet consult. Patient instructed to contact PCP for referral. Snoring can also be treated with an oral appliance from a dentist. Advised to check insurance coverage. In addition, an ENT evaluation can be do to see if other treatment is indicated. Patient counseled not drink alcohol less than 4 hours before bedtime as it can increase snoring and apnea. Patient was cautioned about risks of drowsy driving until sleepiness symptoms resolve. Sleep Study - Results Type of Sleep Study: Polysomnography Prior sleep studies: No Polysomnography/Home Sleep Study results: IMPRESSION: The quality of the study is good. The patient had reduced sleep efficiency due to a prolonged awakening shortly after the sleep onset.. The sleep architecture was normal. Respiratory monitoring showed no significant sleep disordered breathing (AHI = 1.4) or hypoxia (andrés oxygen saturation of 89%). The patient slept minimally in supine position (supine AHI = 0.0; non-supine = 1.47). Snore was moderate to loud in intensity. There was mild periodic leg movement of sleep not associated with sleep fragmentation. Cardiac rhythm was atrial fibrillation with occasional premature ventricular contractions. No abnormal behavior (parasomnia) observed during the night. Allergies and Home Medications Drug allergies reviewed: Yes (Sulfa drugs) Home medication list reviewed: Yes (no changes) Review of Systems Review of systems same as previous: Yes (no changes) Physical Exam Heart Rate: 74 O2 Saturation: 90 Height: 6 ft 2 in Weight: 194 lb Body Mass Index: 24.9 BMI Classification: Healthy weight Impression and Plan 1. Atrial fibrillation, chronic. Patient has a history of atrial fibrillation, recommend further followup with cardiology and treatment as appropriate. 2. Periodic limb movement, mild, that did not fragment patients sleep. Periodic limb movement of sleep (PLMS) is characterized by episodes of repetitive limb movements that occur during sleep and usually involve the lower limbs. The etiology is unknown but can be associated with restless leg syndrome (RLS), neuropathy, spinal cord diseases, kidney disease, rheumatological disorders, narcolepsy, obstructive sleep apnea, and REM sleep behavior disorder. Patient was advised that no treatment is needed at this time. If symptoms increase, then further evaluation is indicated. 3. Snoring but no significant sleep disordered breathing. Patient advised that often weight loss will reduce snoring as well as apnea risk. An oral appliance can also be used for snoring. This would require a dental consultation. Patient cautioned not to use other online appliances as can cause bite issues. Patient is advised to check if insurance will cover. An ENT consult can also be helpful to determine if any other treatment is an option. * Follow up with planning assistant for atrial fibrillation * Follow up with PCP for mild PLMs as needed * Avoid alcohol consumption near bedtime * The patient is cautioned about driving until sleepiness is completely resolved. * Return as needed. Counseling Topics: Weight loss health impact Visit Type: In Office Time Spent with Patient (minutes): 14 Provider Statement: I spent 100% of the Face to Face Visit with the patient with greater than 50% spent counseling the patient and coordination of care.
== END 2020-08-11 09:42 | disposition home or self-care (01) ==
LOC: SC 09:41
PROVIDERS: ATTEND Nurse Practitioner Family
DX: I48.20 Chronic atrial fibrillation, unspecified (principal); G47.61 Periodic limb movement disorder; R06.83 Snoring
CPT/HCPCS: 99212; G0463

== ENCOUNTER 2020-08-12 07:53 | Outpatient (CLI) | payer MEDICARE ==
--- NOTE | 2020-08-12 09:21 | Ultrasound Report ---
PROCEDURE: Arterial Visceral Complete INDICATIONS: LT RENAL ARTERY STENOSIS TECHNIQUE: Real time scanning was performed of the aorta, celiac trunk, superior and inferior mesent shimon arteries, with color and pulsed Doppler interrogation of the mesenteric vessels. COMPARISON: None FINDINGS: Brachial blood pressure: 139/79 Aortic peak systolic velocity: 65 cm/s Right: Renal size: 12 cm Renal vein is patent Proximal renal artery peak systolic velocity: 167. Renal aortic ratio of 2.6 Mid renal artery peak systolic velocity: 122 cm/s, renal aortic ratio of 1.9 Distal renal artery peak systolic velocity: 107 cm/s, renal aortic ratio of 1.7 Left: Renal size: 12.6 cm Renal vein is patent Left renal artery origin peak systolic velocity: 264 cm/s, renal aortic ratio of 4.1 Proximal renal artery peak systolic velocity: 196 cm/s, renal aortic ratio of 3.0 Mid renal artery peak systolic velocity: 158 cm/s, renal aortic ratio of 2.4 Distal renal artery peak systolic velocity: 110 cm/s, renal aortic ratio of 1.7 IMPRESSION: 1. Findings suggestive of hemodynamically significant left renal artery stenosis. Confirmation with M R angiography of the abdomen is recommended. 2. No evidence of right renal artery stenosis. Reviewed by: Alena Weaver MD on 08/12/2020 9:20 AM PST Approved by: Alena Weaver MD on 08/12/2020 9:20 AM PST Station ID: [id number]
== END 2020-08-12 07:54 | disposition home or self-care (01) ==
LOC: DI 07:53
PROVIDERS: ATTEND Internal Medicine
DX: I70.1 Atherosclerosis of renal artery (principal)
CPT/HCPCS: 93975

== ENCOUNTER 2020-09-06 08:00 | Outpatient (CLI) | payer MEDICARE | END 2020-09-06 23:59 | disposition home or self-care (01) | LOC: LAB.WCP 08:00 | PROVIDERS: ATTEND Internal Medicine | DX: I48.21 Permanent atrial fibrillation (principal); Z79.01 Long term (current) use of anticoagulants ==

== ENCOUNTER 2020-10-13 08:00 | Outpatient (CLI) | payer MEDICARE | END 2020-10-13 23:59 | disposition home or self-care (01) | LOC: LAB.WCP 08:00 | PROVIDERS: ATTEND Internal Medicine | DX: I48.21 Permanent atrial fibrillation (principal); Z79.01 Long term (current) use of anticoagulants ==

== ENCOUNTER 2020-11-12 08:00 | Outpatient (CLI) | payer MEDICARE | END 2020-11-12 23:59 | disposition home or self-care (01) | LOC: LAB.WCP 08:00 | PROVIDERS: ATTEND Internal Medicine | DX: I48.21 Permanent atrial fibrillation (principal); Z79.01 Long term (current) use of anticoagulants ==

== ENCOUNTER 2020-11-19 08:00 | Outpatient (CLI) | payer MEDICARE | END 2020-11-19 23:59 | disposition home or self-care (01) | LOC: LAB.WCP 08:00 | PROVIDERS: ATTEND Internal Medicine | DX: I48.21 Permanent atrial fibrillation (principal); Z79.01 Long term (current) use of anticoagulants ==

== ENCOUNTER 2020-12-03 08:00 | Outpatient (CLI) | payer MEDICARE | END 2020-12-03 23:59 | disposition home or self-care (01) | LOC: LAB.WCP 08:00 | PROVIDERS: ATTEND Internal Medicine | DX: I48.21 Permanent atrial fibrillation (principal); Z79.01 Long term (current) use of anticoagulants ==

== ENCOUNTER 2020-12-22 08:00 | Outpatient (CLI) | payer MEDICARE | END 2020-12-22 23:59 | disposition home or self-care (01) | LOC: LAB.WCP 08:00 | PROVIDERS: ATTEND Internal Medicine | DX: I48.21 Permanent atrial fibrillation (principal); Z79.01 Long term (current) use of anticoagulants ==

== ENCOUNTER 2021-01-11 08:00 | Outpatient (CLI) | payer MEDICARE ==
[2021-01-11 18:40] LABS: ALBUMIN 4.5 g/dL (3.2-5.5); ALBUMIN/GLOBULIN RATIO 1.9 (1.0-2.2); ALKALINE PHOSPHATASE 61 IU/L (42-121); ALT ALANINE AMINOTRANSFERASE 23 IU/L (10-60); AST ASPARTATE AMINOTRANSFERASE 24 IU/L (10-42); BILIRUBIN,TOTAL 1.1 mg/dL (0.2-1.0); BUN - BLOOD UREA NITROGEN 23 mg/dL (6-20); CALCIUM 9.5 mg/dL (8.5-10.3); CARBON DIOXIDE - CO2 28 mmol/L (21-32); CHLORIDE 101 mmol/L (101-111); CHOL/HDL RATIO 2.1 (<5.0); CHOLESTEROL 139 mg/dL; GFR - MDRD 72 (>89); GLUCOSE 98 mg/dL (70-100); HDL CHOLESTEROL 66 mg/dL; LDL CHOLESTEROL,CALCULATED 60 mg/dL; LDL/HDL RATIO 0.9 (<3.6); POTASSIUM 4.9 mmol/L (3.5-5.0); SODIUM 138 mmol/L (135-145); TOTAL PROTEIN 6.9 g/dL (6.7-8.2); TRIGLYCERIDES 63 mg/dL; VLDL CHOLESTEROL 13 mg/dL
== END 2021-01-11 23:59 | disposition home or self-care (01) ==
LOC: LAB.WCP 08:00
PROVIDERS: ATTEND Physician Assistant Medical
DX: E78.5 Hyperlipidemia, unspecified (principal)
CPT/HCPCS: 36415; 80053; 80061; 83721

== ENCOUNTER 2021-01-19 08:00 | Outpatient (CLI) | payer MEDICARE | END 2021-01-19 23:59 | disposition home or self-care (01) | LOC: LAB.WCP 08:00 | PROVIDERS: ATTEND Internal Medicine | DX: I48.21 Permanent atrial fibrillation (principal); Z79.01 Long term (current) use of anticoagulants ==

== ENCOUNTER 2021-02-16 08:00 | Outpatient (CLI) | payer MEDICARE | END 2021-02-16 23:59 | disposition home or self-care (01) | LOC: LAB.WCP 08:00 | PROVIDERS: ATTEND Internal Medicine | DX: Z79.01 Long term (current) use of anticoagulants (principal); I48.21 Permanent atrial fibrillation ==

== ENCOUNTER 2021-03-16 08:00 | Outpatient (CLI) | payer MEDICARE | END 2021-03-16 23:59 | disposition home or self-care (01) | LOC: LAB.WCP 08:00 | PROVIDERS: ATTEND Internal Medicine | DX: Z79.01 Long term (current) use of anticoagulants (principal); I48.21 Permanent atrial fibrillation ==

== ENCOUNTER 2021-05-03 15:55 | Outpatient (CLI) | payer MEDICARE ==
--- NOTE | 2021-05-03 16:55 | XRAY Report ---
PROCEDURE: Foot 2 View RT INDICATIONS: R FOOT PX TECHNIQUE: 2 views of the foot were acquired. COMPARISON: None FINDINGS: No acute fracture. Large posterior calcaneal spurring. Scattered vascular calcifications. There is hi ndfoot and midfoot joint degeneration. There is diffuse osteopenia. Moderate first MTP joint degenera tion. Diffuse interphalangeal osteoarthritis. IMPRESSION: Diffuse degenerative changes as above. Prominent posterior calcaneal spur. Reviewed by: Sunday Mejia MD on 05/03/2021 4:54 PM PST Approved by: Sunday Mejia MD on 05/03/2021 4:54 PM PST Station ID: [id number]
--- NOTE | 2021-05-03 17:11 | XRAY Report ---
PROCEDURE: Ankle 2 View RT INDICATIONS: R ANKLE PX TECHNIQUE: 2 views of the ankle were acquired. COMPARISON: None FINDINGS: Bones: No fractures or dislocations. Ankle mortise is normally aligned. No suspicious bony lesions . Soft tissues: No tibiotalar joint effusion. Achilles tendon appears normal. Lateral soft tissue swe lling. Small vessel calcifications suggest probable diabetes. IMPRESSION: No evidence acute bony abnormality of the right ankle. If clinical suspicion and/or symptoms persist, further assessment with repeat plain films or advanced imaging (e.g., CT, MRI, or bone scan) may be helpful for further assessment. Reviewed by: Jose Miguel Pritchett MD on 05/03/2021 5:10 PM PST Approved by: Jose Miguel Pritchett MD on 05/03/2021 5:10 PM PST Station ID: [id number]
== END 2021-05-03 23:59 | disposition home or self-care (01) ==
LOC: DI.N 15:55
PROVIDERS: ATTEND Family Medicine
DX: M19.071 Primary osteoarthritis, right ankle and foot (principal); M77.31 Calcaneal spur, right foot

== ENCOUNTER 2021-05-11 08:00 | Outpatient (CLI) | payer MEDICARE | END 2021-05-11 23:59 | disposition home or self-care (01) | LOC: LAB.WCP 08:00 | PROVIDERS: ATTEND Internal Medicine | DX: I48.21 Permanent atrial fibrillation (principal); Z79.01 Long term (current) use of anticoagulants ==

== ENCOUNTER 2021-05-18 08:00 | Outpatient (CLI) | payer MEDICARE | END 2021-05-18 23:59 | disposition home or self-care (01) | LOC: LAB.WCP 08:00 | PROVIDERS: ATTEND Internal Medicine | DX: I48.21 Permanent atrial fibrillation (principal); Z79.01 Long term (current) use of anticoagulants ==

== ENCOUNTER 2021-06-21 11:30 | Outpatient (CLI) | payer MEDICARE ==
[2021-06-21 18:13] LABS: CALCIUM 9.5 mg/dL (8.5-10.3); CREATININE 1.1 mg/dL (0.6-1.2); POTASSIUM 4.5 mmol/L (3.5-5.0)
[2021-06-21 18:32] LABS: THYROID STIMULATING HORMONE 1.11 uIU/mL (0.34-5.60)
[2021-06-21 19:29] LABS: ESTIMATED AVERAGE GLUCOSE 131 mg/dL (70-100); HEMOGLOBIN A1c% 6.2 % (4.27-6.07)
== END 2021-06-21 11:31 | disposition home or self-care (01) ==
LOC: LAB.N 11:30
PROVIDERS: ATTEND Internal Medicine
DX: I10 Essential (primary) hypertension (principal); G62.9 Polyneuropathy, unspecified
CPT/HCPCS: 36415; 80048; 81599; 82607; 83036; 84155; 84165; 84443; 86334

== ENCOUNTER 2021-06-24 08:00 | Outpatient (CLI) | payer MEDICARE | END 2021-06-24 23:59 | disposition home or self-care (01) | LOC: LAB.WCP 08:00 | PROVIDERS: ATTEND Internal Medicine | DX: I48.21 Permanent atrial fibrillation (principal); Z79.01 Long term (current) use of anticoagulants ==

== ENCOUNTER 2021-07-25 08:00 | Outpatient (CLI) | payer MEDICARE | END 2021-07-25 23:59 | disposition home or self-care (01) | LOC: LAB.N 08:00 | PROVIDERS: ATTEND Internal Medicine | DX: I48.21 Permanent atrial fibrillation (principal); Z79.01 Long term (current) use of anticoagulants ==

== ENCOUNTER 2021-08-01 08:00 | Outpatient (CLI) | payer MEDICARE | END 2021-08-01 23:59 | disposition home or self-care (01) | LOC: LAB.N 08:00 | PROVIDERS: ATTEND Internal Medicine | DX: I48.21 Permanent atrial fibrillation (principal); Z79.01 Long term (current) use of anticoagulants ==

== ENCOUNTER 2021-08-03 08:00 | Outpatient (CLI) | payer MEDICARE | END 2021-08-03 23:59 | disposition home or self-care (01) | LOC: LAB.N 08:00 | PROVIDERS: ATTEND Internal Medicine | DX: Z79.01 Long term (current) use of anticoagulants (principal); I48.21 Permanent atrial fibrillation ==

== ENCOUNTER 2021-10-17 08:00 | Outpatient (CLI) | payer MEDICARE | END 2021-10-17 23:59 | disposition home or self-care (01) | LOC: LAB.N 08:00 | PROVIDERS: ATTEND Internal Medicine | DX: I48.21 Permanent atrial fibrillation (principal); Z79.01 Long term (current) use of anticoagulants ==

== ENCOUNTER 2021-10-20 10:28 | Outpatient (CLI) | payer MEDICARE ==
[2021-10-20 13:43] LABS: BUN - BLOOD UREA NITROGEN 21 mg/dL (6-20); CALCIUM 9.8 mg/dL (8.5-10.3); CARBON DIOXIDE - CO2 26 mmol/L (21-32); CHLORIDE 103 mmol/L (101-111); CHOL/HDL RATIO 2.4 (<5.0); CHOLESTEROL 155 mg/dL; CREATININE 1.1 mg/dL (0.6-1.2); GFR - MDRD 65 (>89); GLUCOSE 101 mg/dL (70-100); HDL CHOLESTEROL 65 mg/dL; LDL CHOLESTEROL,CALCULATED 77 mg/dL; LDL/HDL RATIO 1.2 (<3.6); POTASSIUM 4.3 mmol/L (3.5-5.0); SODIUM 142 mmol/L (135-145); TRIGLYCERIDES 65 mg/dL; VLDL CHOLESTEROL 13 mg/dL
[2021-10-20 14:35] LABS: ESTIMATED AVERAGE GLUCOSE 128 mg/dL (70-100); HEMOGLOBIN A1c% 6.1 % (4.27-6.07)
== END 2021-10-20 10:29 | disposition home or self-care (01) ==
LOC: LAB.N 10:28
PROVIDERS: ATTEND Internal Medicine
DX: I10 Essential (primary) hypertension (principal); E78.5 Hyperlipidemia, unspecified; R73.03 Prediabetes; E53.8 Deficiency of other specified B group vitamins; M10.9 Gout, unspecified
CPT/HCPCS: 36415; 80048; 80061; 82043; 82570; 82607; 83036; 83721; 84550

== ENCOUNTER 2021-10-21 08:00 | Outpatient (CLI) | payer MEDICARE ==
[2021-10-21 18:11] LABS: CREATININE,URINE 99.4 mg/dL; MICROALBUMIN,URINE 0.8 mg/dL (0-300.0)
== END 2021-10-21 23:59 | disposition home or self-care (01) ==
LOC: LAB.N 08:00
PROVIDERS: ATTEND Internal Medicine
DX: R73.03 Prediabetes (principal)
CPT/HCPCS: 82043; 82570

== ENCOUNTER 2021-10-24 08:00 | Outpatient (CLI) | payer MEDICARE | END 2021-10-24 23:59 | disposition home or self-care (01) | LOC: LAB.N 08:00 | PROVIDERS: ATTEND Internal Medicine | DX: I48.21 Permanent atrial fibrillation (principal); Z79.01 Long term (current) use of anticoagulants ==

== ENCOUNTER 2021-11-09 08:00 | Outpatient (CLI) | payer MEDICARE | END 2021-11-09 08:01 | disposition home or self-care (01) | LOC: LAB.WCP 08:00 | PROVIDERS: ATTEND Internal Medicine | DX: I48.21 Permanent atrial fibrillation (principal); Z79.01 Long term (current) use of anticoagulants ==

== ENCOUNTER 2021-11-21 08:00 | Outpatient (CLI) | payer MEDICARE | END 2021-11-21 23:59 | disposition home or self-care (01) | LOC: LAB.WCP 08:00 | PROVIDERS: ATTEND Internal Medicine | DX: I48.21 Permanent atrial fibrillation (principal); Z79.01 Long term (current) use of anticoagulants ==

== ENCOUNTER 2021-11-28 08:00 | Outpatient (CLI) | payer MEDICARE ==
--- NOTE | 2021-11-28 11:34 | XRAY Report ---
PROCEDURE: Shoulder 3 View RT INDICATIONS: SPRAIN OF R SHOULDER TECHNIQUE: 3 views of the shoulder were acquired. COMPARISON: 3 views of the shoulder dated 09/04/2019 FINDINGS: Bones: No fractures or dislocations. No suspicious bony lesions. Visualized ribs appear intact. Soft tissues: No suspicious soft tissue calcifications. IMPRESSION: No acute radiographic findings. If pain persists, repeat imaging in 5-7 days could be us ed to evaluate for occult fracture. Reviewed by: Chanel Gaston MD on 11/28/2021 11:32 AM PDT Approved by: Chanel Gaston MD on 11/28/2021 11:32 AM PDT Station ID: [id number]
== END 2021-11-28 23:59 | disposition home or self-care (01) ==
LOC: DI.N 08:00
PROVIDERS: ATTEND Physician Assistant
DX: S43.491A Other sprain of right shoulder joint, initial encounter (principal)

== ENCOUNTER → 2021-11-28 | Outpatient (CLI) | payer MEDICARE | LOC: LAB.WCP 08:00 | PROVIDERS: ATTEND Internal Medicine | DX: I48.21 Permanent atrial fibrillation (principal); Z79.01 Long term (current) use of anticoagulants ==

== ENCOUNTER 2021-12-12 08:00 | Outpatient (CLI) | payer MEDICARE | END 2021-12-12 23:59 | disposition home or self-care (01) | LOC: LAB.WCP 08:00 | PROVIDERS: ATTEND Internal Medicine | DX: I48.21 Permanent atrial fibrillation (principal); Z79.01 Long term (current) use of anticoagulants ==

== ENCOUNTER 2022-01-02 08:00 | Outpatient (CLI) | payer MEDICARE | END 2022-01-02 23:59 | disposition home or self-care (01) | LOC: LAB.WCP 08:00 | PROVIDERS: ATTEND Internal Medicine | DX: I48.21 Permanent atrial fibrillation (principal); Z79.01 Long term (current) use of anticoagulants ==

== ENCOUNTER 2022-03-17 10:20 | Outpatient (CLI) | payer MEDICARE ==
[2022-03-17 12:41] LABS: ESTIMATED AVERAGE GLUCOSE 111 mg/dL (70-100); HEMOGLOBIN A1c% 5.5 % (4.27-6.07)
[2022-03-17 13:05] LABS: ALBUMIN 4.3 g/dL (3.2-5.5); ALBUMIN/GLOBULIN RATIO 1.5 (1.0-2.2); ALKALINE PHOSPHATASE 64 IU/L (42-121); ALT ALANINE AMINOTRANSFERASE 16 IU/L (10-60); AST ASPARTATE AMINOTRANSFERASE 17 IU/L (10-42); BILIRUBIN,TOTAL 1.8 mg/dL (0.2-1.0); BUN - BLOOD UREA NITROGEN 22 mg/dL (6-20); CALCIUM 9.7 mg/dL (8.5-10.3); CARBON DIOXIDE - CO2 31 mmol/L (21-32); CHLORIDE 106 mmol/L (101-111); CHOLESTEROL 128 mg/dL; CREATININE 1.1 mg/dL (0.6-1.2); GFR - MDRD 65 (>89); GLUCOSE 115 mg/dL (70-100); HDL CHOLESTEROL 64 mg/dL; LDL CHOLESTEROL,CALCULATED 56 mg/dL; LDL/HDL RATIO 0.9 (<3.6); POTASSIUM 3.8 mmol/L (3.5-5.0); SODIUM 147 mmol/L (135-145); TOTAL PROTEIN 7.2 g/dL (6.7-8.2); TRIGLYCERIDES 41 mg/dL; URIC ACID 5.8 mg/dL (2.6-7.2); VLDL CHOLESTEROL 8 mg/dL
== END 2022-03-17 10:21 | disposition home or self-care (01) ==
LOC: LAB.N 10:20
PROVIDERS: ATTEND Internal Medicine
DX: E78.5 Hyperlipidemia, unspecified (principal); R73.03 Prediabetes; E53.8 Deficiency of other specified B group vitamins; M10.9 Gout, unspecified
CPT/HCPCS: 36415; 80053; 80061; 82043; 82570; 82607; 83036; 83721; 84550

== ENCOUNTER 2022-03-20 16:09 | Outpatient (CLI) | payer MEDICARE ==
[2022-03-20 18:28] LABS: CREATININE,URINE 69.2 mg/dL; MICROALBUM/CREATININE RATIO,UR 23.1 ug/mg (<30.0); MICROALBUMIN,URINE 1.6 mg/dL (0-300.0)
== END 2022-03-20 16:10 | disposition home or self-care (01) ==
LOC: LAB.N 16:09
PROVIDERS: ATTEND Internal Medicine
DX: R73.03 Prediabetes (principal)
CPT/HCPCS: 82043; 82570

== ENCOUNTER 2022-04-12 08:23 | Outpatient (CLI) | payer MEDICARE ==
--- NOTE | 2022-04-12 12:45 | XRAY Report ---
PROCEDURE: Shoulder 3 View RT INDICATIONS: R SHOULDER IMPINGEMENT SYNDROME TECHNIQUE: 3 views of the shoulder were acquired. COMPARISON: 11/28/2021 FINDINGS: Bones: No fractures or dislocations. There is moderate lateral acromial downsloping, undersurface sp urring and osseous remodeling. There is humeral acromial joint space loss. Clinical humeral joint rem ains normal. Comment clavicular joint remains normal. No suspicious bony lesions. Visualized ribs a ppear intact. Soft tissues: No suspicious soft tissue calcifications. IMPRESSION: 1. Decreased acromiohumeral interval and osseous spurring may predispose to rotator cuff tear. Consid er MR imaging. Reviewed by: Natalya Brown MD on 04/12/2022 11:44 AM JERRY Approved by: Natalya Brown MD on 04/12/2022 11:44 AM JERRY Station ID: [id number]
== END 2022-04-12 08:24 | disposition home or self-care (01) ==
LOC: DI.N 08:23
PROVIDERS: ATTEND Internal Medicine
DX: M75.41 Impingement syndrome of right shoulder (principal)

== ENCOUNTER → 2022-05-15 | Outpatient (CLI) | payer MEDICARE | LOC: LAB.WCP 08:00 | PROVIDERS: ATTEND Internal Medicine | DX: Z79.01 Long term (current) use of anticoagulants (principal); I48.21 Permanent atrial fibrillation ==

== ENCOUNTER 2022-06-16 08:00 | Outpatient (CLI) | payer MEDICARE | END 2022-06-16 23:59 | disposition home or self-care (01) | LOC: LAB.WCP 08:00 | PROVIDERS: ATTEND Internal Medicine | DX: Z79.01 Long term (current) use of anticoagulants (principal); I48.21 Permanent atrial fibrillation ==

== ENCOUNTER 2022-07-10 08:00 | Outpatient (CLI) | payer MEDICARE | END 2022-07-10 23:59 | disposition home or self-care (01) | LOC: LAB.WCP 08:00 | PROVIDERS: ATTEND Family Medicine | DX: I48.21 Permanent atrial fibrillation (principal); Z79.01 Long term (current) use of anticoagulants ==

== ENCOUNTER 2022-08-09 08:41 | Outpatient (CLI) | payer MEDICARE ==
[2022-08-09 12:41] LABS: CREATININE 1.1 mg/dL (0.6-1.2)
== END 2022-08-09 08:42 | disposition home or self-care (01) ==
LOC: LAB.N 08:41
PROVIDERS: ATTEND Internal Medicine
DX: I11.0 Hypertensive heart disease with heart failure (principal)
CPT/HCPCS: 36415; 80048

== ENCOUNTER 2022-08-16 08:00 | Outpatient (CLI) | payer MEDICARE | END 2022-08-16 23:59 | disposition home or self-care (01) | LOC: LAB.N 08:00 | PROVIDERS: ATTEND Internal Medicine | DX: Z79.01 Long term (current) use of anticoagulants (principal); I48.21 Permanent atrial fibrillation ==

== ENCOUNTER 2022-09-04 08:00 | Outpatient (CLI) | payer MEDICARE | END 2022-09-04 23:59 | disposition home or self-care (01) | LOC: LAB.WCP 08:00 | PROVIDERS: ATTEND Internal Medicine | DX: Z79.01 Long term (current) use of anticoagulants (principal); I48.21 Permanent atrial fibrillation ==

== ENCOUNTER 2022-09-25 08:00 | Outpatient (CLI) | payer MEDICARE | END 2022-09-25 23:59 | disposition home or self-care (01) | LOC: LAB.N 08:00 | PROVIDERS: ATTEND Internal Medicine | DX: Z79.01 Long term (current) use of anticoagulants (principal); I48.21 Permanent atrial fibrillation ==

== ENCOUNTER 2022-10-23 08:00 | Outpatient (CLI) | payer MEDICARE | END 2022-10-23 23:59 | disposition home or self-care (01) | LOC: LAB.N 08:00 | PROVIDERS: ATTEND Internal Medicine | DX: Z79.01 Long term (current) use of anticoagulants (principal); I48.21 Permanent atrial fibrillation ==

== ENCOUNTER 2022-11-27 08:00 | Outpatient (CLI) | payer MEDICARE | END 2022-11-27 23:59 | disposition home or self-care (01) | LOC: LAB.N 08:00 | PROVIDERS: ATTEND Internal Medicine | DX: Z79.01 Long term (current) use of anticoagulants (principal); I48.21 Permanent atrial fibrillation ==

== ENCOUNTER 2022-12-01 10:16 | Outpatient (CLI) | payer MEDICARE ==
[2022-12-01 12:16] LABS: CALCIUM 9.3 mg/dL (8.5-10.3); CREATININE 1.2 mg/dL (0.6-1.2); POTASSIUM 4.1 mmol/L (3.5-5.0); URIC ACID 6.8 mg/dL (2.6-7.2)
[2022-12-01 12:25] LABS: ESTIMATED AVERAGE GLUCOSE 126 mg/dL (70-100)
[2022-12-01 12:27] LABS: THYROID STIMULATING HORMONE 1.12 uIU/mL (0.34-5.60)
== END 2022-12-01 10:17 | disposition home or self-care (01) ==
LOC: LAB.N 10:16
PROVIDERS: ATTEND Internal Medicine
DX: I11.0 Hypertensive heart disease with heart failure (principal); I50.30 Unspecified diastolic (congestive) heart failure; E53.8 Deficiency of other specified B group vitamins; R73.03 Prediabetes; I48.21 Permanent atrial fibrillation; M10.9 Gout, unspecified
CPT/HCPCS: 36415; 80048; 82607; 83036; 84443; 84550

== ENCOUNTER 2022-12-13 08:00 | Outpatient (CLI) | payer MEDICARE | END 2022-12-13 23:59 | disposition home or self-care (01) | LOC: LAB.N 08:00 | PROVIDERS: ATTEND Internal Medicine | DX: Z79.01 Long term (current) use of anticoagulants (principal); I48.21 Permanent atrial fibrillation ==

== ENCOUNTER 2022-12-25 08:00 | Outpatient (CLI) | payer MEDICARE | END 2022-12-25 23:59 | disposition home or self-care (01) | LOC: LAB.N 08:00 | PROVIDERS: ATTEND Internal Medicine | DX: Z79.01 Long term (current) use of anticoagulants (principal); I48.21 Permanent atrial fibrillation ==

== ENCOUNTER 2023-01-15 08:00 | Outpatient (CLI) | payer MEDICARE | END 2023-01-15 23:59 | disposition home or self-care (01) | LOC: LAB.N 08:00 | PROVIDERS: ATTEND Internal Medicine | DX: Z79.01 Long term (current) use of anticoagulants (principal); I48.21 Permanent atrial fibrillation ==

== ENCOUNTER 2023-02-12 08:00 | Outpatient (CLI) | payer MEDICARE | END 2023-02-12 23:59 | disposition home or self-care (01) | LOC: LAB.N 08:00 | PROVIDERS: ATTEND Internal Medicine | DX: Z79.01 Long term (current) use of anticoagulants (principal); I48.21 Permanent atrial fibrillation ==

== ENCOUNTER 2023-03-22 11:25 | Outpatient (CLI) | payer MEDICARE ==
[2023-03-22 18:02] LABS: BUN - BLOOD UREA NITROGEN 24 mg/dL (6-20); CALCIUM 9.6 mg/dL (8.5-10.3); CARBON DIOXIDE - CO2 30 mmol/L (21-32); CHLORIDE 108 mmol/L (101-111); CHOL/HDL RATIO 2.3 (<5.0); CHOLESTEROL 112 mg/dL; GFR - MDRD 72 (>89); GLUCOSE 111 mg/dL (74-104); HDL CHOLESTEROL 49 mg/dL; LDL CHOLESTEROL,CALCULATED 50 mg/dL; POTASSIUM 4.2 mmol/L (3.5-4.5); SODIUM 144 mmol/L (135-145); TRIGLYCERIDES 63 mg/dL (48-352); VLDL CHOLESTEROL 13 mg/dL
[2023-03-22 19:32] LABS: ESTIMATED AVERAGE GLUCOSE 120 mg/dL (70-100); HEMOGLOBIN A1c% 5.8 % (4.27-6.07)
== END 2023-03-22 11:26 | disposition home or self-care (01) ==
LOC: LAB.N 11:25
PROVIDERS: ATTEND Internal Medicine
DX: R73.03 Prediabetes (principal); E78.5 Hyperlipidemia, unspecified
CPT/HCPCS: 36415; 80048; 80061; 83036; 83721

== ENCOUNTER 2023-04-09 08:00 | Outpatient (CLI) | payer MEDICARE | END 2023-04-09 23:59 | disposition home or self-care (01) | LOC: LAB.N 08:00 | PROVIDERS: ATTEND Internal Medicine | DX: Z79.01 Long term (current) use of anticoagulants (principal); I48.21 Permanent atrial fibrillation ==

== ENCOUNTER 2023-05-07 08:00 | Outpatient (CLI) | payer MEDICARE | END 2023-05-07 23:59 | disposition home or self-care (01) | LOC: LAB.N 08:00 | PROVIDERS: ATTEND Internal Medicine | DX: Z79.01 Long term (current) use of anticoagulants (principal); I48.21 Permanent atrial fibrillation ==

== ENCOUNTER 2023-05-21 08:00 | Outpatient (CLI) | payer MEDICARE | END 2023-05-21 08:01 | disposition home or self-care (01) | LOC: LAB.N 08:00 | PROVIDERS: ATTEND Internal Medicine | DX: Z51.81 Encounter for therapeutic drug level monitoring (principal); I48.21 Permanent atrial fibrillation; Z79.01 Long term (current) use of anticoagulants ==

== ENCOUNTER 2023-06-06 08:00 | Outpatient (CLI) | payer MEDICARE | END 2023-06-06 08:01 | disposition home or self-care (01) | LOC: LAB.WCP 08:00 | PROVIDERS: ATTEND Internal Medicine | DX: I48.21 Permanent atrial fibrillation (principal); Z79.01 Long term (current) use of anticoagulants ==

== ENCOUNTER 2023-06-27 08:00 | Outpatient (CLI) | payer MEDICARE | END 2023-06-27 08:01 | disposition home or self-care (01) | LOC: LAB.WCP 08:00 | PROVIDERS: ATTEND Internal Medicine | DX: I48.21 Permanent atrial fibrillation (principal); Z79.01 Long term (current) use of anticoagulants ==

== ENCOUNTER 2023-07-02 09:01 | Outpatient (CLI) | payer MEDICARE ==
[2023-07-02 12:02] LABS: BASOPHILS % (AUTO) 0.5 %; EOSINOPHILS # (AUTO) 0.2 10^3/uL (0.0-0.7); EOSINOPHILS % (AUTO) 3.2 %; HCT - HEMATOCRIT 44.5 % (42.0-52.0); HGB - HEMOGLOBIN 14.2 g/dL (14.0-18.0); LYMPHOCYTES # (AUTO) 1.1 10^3/uL (1.5-3.5); LYMPHOCYTES % (AUTO) 17.2 %; MEAN CORPUSCULAR HGB CONC 31.9 g/dL (32.0-36.0); MEAN CORPUSCULAR VOLUME 106.5 fL (80.0-94.0); MEAN PLATELET VOLUME 11.1 fL (7.4-11.4); MONOCYTES # (AUTO) 0.8 10^3/uL (0.0-1.0); MONOCYTES % (AUTO) 12.5 %; NEUTROPHILS # (AUTO) 4.1 10^3/uL (1.5-6.6); NEUTROPHILS % (AUTO) 66.3 %; PLT - PLATELET COUNT 177 10^3/uL (130-450); RED BLOOD COUNT 4.18 10^6/uL (4.70-6.10); RED CELL DISTRIBUTION WIDTH 13.8 % (12.0-15.0); WHITE BLOOD COUNT 6.2 x10^3/uL (4.8-10.8)
[2023-07-02 13:23] LABS: ALBUMIN 4.3 g/dL (3.2-5.5); ALBUMIN/GLOBULIN RATIO 1.6 (1.0-2.2); ALKALINE PHOSPHATASE 90 IU/L (42-121); ALT ALANINE AMINOTRANSFERASE 13 IU/L (10-60); AST ASPARTATE AMINOTRANSFERASE 14 IU/L (10-42); BILIRUBIN,TOTAL 1.7 mg/dL (0.2-1.0); BUN - BLOOD UREA NITROGEN 24 mg/dL (6-20); CALCIUM 9.8 mg/dL (8.5-10.3); CARBON DIOXIDE - CO2 30 mmol/L (21-32); CHLORIDE 104 mmol/L (101-111); CHOL/HDL RATIO 2.3 (<5.0); CHOLESTEROL 119 mg/dL; CREATININE 1.1 mg/dL (0.6-1.3); GFR - MDRD 65 (>89); GLUCOSE 116 mg/dL (74-104); HDL CHOLESTEROL 52 mg/dL; LDL CHOLESTEROL,CALCULATED 52 mg/dL; POTASSIUM 4.6 mmol/L (3.5-4.5); SODIUM 143 mmol/L (135-145); TRIGLYCERIDES 77 mg/dL (48-352); VLDL CHOLESTEROL 15 mg/dL
== END 2023-07-02 09:02 | disposition home or self-care (01) ==
LOC: LAB.N 09:01
PROVIDERS: ATTEND Internal Medicine
DX: E78.5 Hyperlipidemia, unspecified (principal); Z79.899 Other long term (current) drug therapy
CPT/HCPCS: 36415; 80053; 80061; 83721; 85025

== ENCOUNTER 2023-07-25 08:00 | Outpatient (CLI) | payer MEDICARE | END 2023-07-25 08:01 | disposition home or self-care (01) | LOC: LAB.N 08:00 | PROVIDERS: ATTEND Internal Medicine | DX: I48.21 Permanent atrial fibrillation (principal); Z79.01 Long term (current) use of anticoagulants ==

== ENCOUNTER 2023-08-22 08:00 | Outpatient (CLI) | payer MEDICARE | END 2023-08-22 08:01 | disposition home or self-care (01) | LOC: LAB.N 08:00 | PROVIDERS: ATTEND Internal Medicine | DX: I48.21 Permanent atrial fibrillation (principal); Z79.01 Long term (current) use of anticoagulants ==

== ENCOUNTER 2023-08-29 08:00 | Outpatient (CLI) | payer MEDICARE | END 2023-08-29 08:01 | disposition home or self-care (01) | LOC: LAB.WCP 08:00 | PROVIDERS: ATTEND Internal Medicine | DX: I48.21 Permanent atrial fibrillation (principal); Z79.01 Long term (current) use of anticoagulants ==

== ENCOUNTER 2023-11-05 08:00 | Outpatient (CLI) | payer MEDICARE | END 2023-11-05 08:01 | disposition home or self-care (01) | LOC: LAB.WCP 08:00 | PROVIDERS: ATTEND Internal Medicine | DX: I48.21 Permanent atrial fibrillation (principal); Z79.01 Long term (current) use of anticoagulants ==

== ENCOUNTER 2023-11-08 11:06 | Outpatient (CLI) | payer MEDICARE ==
[2023-11-08 17:41] LABS: BASOPHILS % (AUTO) 0.6 %; EOSINOPHILS # (AUTO) 0.2 10^3/uL (0.0-0.7); EOSINOPHILS % (AUTO) 3.6 %; HCT - HEMATOCRIT 45.8 % (42.0-52.0); HGB - HEMOGLOBIN 15.1 g/dL (14.0-18.0); LYMPHOCYTES # (AUTO) 1.7 10^3/uL (1.5-3.5); LYMPHOCYTES % (AUTO) 32.5 %; MEAN CORPUSCULAR HEMOGLOBIN 34.6 pg (27.0-31.0); MEAN PLATELET VOLUME 10.6 fL (7.4-11.4); MONOCYTES # (AUTO) 0.6 10^3/uL (0.0-1.0); NEUTROPHILS # (AUTO) 2.7 10^3/uL (1.5-6.6); NEUTROPHILS % (AUTO) 52.1 %; PLT - PLATELET COUNT 172 10^3/uL (130-450); RED BLOOD COUNT 4.36 10^6/uL (4.70-6.10); RED CELL DISTRIBUTION WIDTH 13.6 % (12.0-15.0); WHITE BLOOD COUNT 5.3 x10^3/uL (4.8-10.8)
[2023-11-08 18:03] LABS: CREATININE 1.2 mg/dL (0.6-1.3); POTASSIUM 4.7 mmol/L (3.5-4.5)
[2023-11-08 18:10] LABS: THYROID STIMULATING HORMONE 1.04 uIU/mL (0.34-5.60)
[2023-11-08 20:39] LABS: ESTIMATED AVERAGE GLUCOSE 123 mg/dL (70-100); HEMOGLOBIN A1c% 5.9 % (4.27-6.07)
== END 2023-11-08 11:07 | disposition home or self-care (01) ==
LOC: LAB.N 11:06
PROVIDERS: ATTEND Internal Medicine
DX: R73.03 Prediabetes (principal); E53.8 Deficiency of other specified B group vitamins; I48.21 Permanent atrial fibrillation; I50.30 Unspecified diastolic (congestive) heart failure
CPT/HCPCS: 36415; 80048; 82607; 83036; 84443; 85025

== ENCOUNTER 2024-02-15 08:00 | Outpatient (CLI) | payer MEDICARE | END 2024-02-15 23:59 | disposition home or self-care (01) | LOC: LAB.N 08:00 | PROVIDERS: ATTEND Internal Medicine | DX: I48.21 Permanent atrial fibrillation (principal); Z79.01 Long term (current) use of anticoagulants ==

== ENCOUNTER 2024-03-12 08:00 | Outpatient (CLI) | payer MEDICARE | END 2024-03-12 23:59 | disposition home or self-care (01) | LOC: LAB.WCP 08:00 | PROVIDERS: ATTEND Internal Medicine | DX: I48.21 Permanent atrial fibrillation (principal); Z79.01 Long term (current) use of anticoagulants ==